=== PATIENT | female | born 1995 | race Caucasian/White ===

== ENCOUNTER 2017-12-07 09:07 | Emergency (ER) | END 2017-12-07 09:34 | disposition home or self-care (01) ==

== ENCOUNTER 2018-07-21 22:51 | Emergency (ER) | payer OTHER ==
[~2018-07-21] VITALS: Wt 70.0 kg
[~2018-07-21 22:51] MED LIST: CEPH-443 PO; HYDR-4011 PO; IBUP-1542 PO; METO10TA92 PO; OMEP20CA16 PO; PREN1TAB62 PO
[2018-07-21 23:14] VITALS: BP 135/60; RESP 20
[2018-07-22] MEDS ORDERED: NITR-58 PO (01:28)
--- NOTE | 2018-07-22 01:36 | ERD ---
ER Documentation Chief Complaint Chief Complaint HEMATURIA, BACK PAIN X'S 1 DAY HPI 23-year-old female was complaining of hematuria since 3 PM this afternoon. Patient states the she had dysuria, urinary frequency and urgency since earlier in the morning, and hematuria presented later in the afternoon. She also rep orts bilateral lower back pain. LMP was 07/11/2018. Patient reports 2 sexual partners in the last 12-month. Denies fever or chills. Denies vaginal discharge. ROS All systems reviewed and are negative except as per history of present illness. Medications Home Meds Active Scripts Nitrofurantoin Monohyd Macrocr* (Macrobid*) 100 Mg Capsr, 100 MG PO BID for 7 Days, CAP Prov:DANYELL GRACE HIGHER EDUCATION ADMINISTRATOR 07/22/18 Ibuprofen* (Motrin*) 600 Mg Tab, 600 MG PO Q6, #30 TAB Prov:LUCIANO BENTLEY PA-C 12/07/17 Cephalexin* (Keflex*) 500 Mg Capsule, 500 MG PO TID, #15 CAP Prov:HEAVENLY TRAORE MD 05/14/16 Metoclopramide* (Reglan*) 10 Mg Tablet, 10 MG PO Q6H PRN for NAUSEA AND OR VOMITING, #30 TAB Prov:HEAVENLY TRAORE MD 05/14/16 Hydrocodone/Acetaminophen ([place] 5-325 Tablet) 1 Each Tablet, 1 EACH PO Q4 PRN for SEVERE PAIN LEVEL 7-10, #30 TAB Prov:HEAVENLY TRAORE MD 05/14/16 Omeprazole* (Omeprazole*) 20 Mg Capsule.dr, 20 MG PO DAILY, #30 CAP Prov:HEAVENLY TRAORE MD 05/14/16 Hydrocodone/Acetaminophen ([place] 5-325 Tablet) 1 Each Tablet, 1 TAB PO Q6H PRN for PAIN, #7 TAB Prov:Jazz Richard PA-C 05/07/16 Reported Medications Vit-Iron Fumarate-FA ( Vitamin Tablet) 1 Each Tablet, 1 TAB PO DAILY, TAB 02/25/16 Allergies Allergies: Coded Allergies: No Known Allergy (Unverified , 12/07/17) PMhx/Soc History of Surgery: Yes ( FEB 25, 2016) Anesthesia Reaction: No Hx Neurological Disorder: No Hx Respiratory Disorders: No Hx Cardiac Disorders: No Hx Psychiatric Problems: No Hx Miscellaneous Medical Probl: No Hx Alcohol Use: No Hx Substance Use: No Hx Tobacco Use: No Physical Exam Vitals Vital Signs Date Temp Pulse Resp B/P (MAP) Pulse Ox O2 O2 Flow FiO2 Time Delivery Rate 07/21/18 98.1 73 20 135/60 99 23:14 (85) Physical Exam General: Well-developed, well-nourished, conscious and coherent, in no distress Skin: Warm and dry without rash, good texture and turgor Head: Normocephalic without evidence of trauma Chest: Normal AP diameter. Good expansion without retractions. Nontender. Lungs are clear to auscultate bilaterally with good tidal volume Heart: Regular rate and rhythm. No murmur, rub, or gallops heard Abdomen: Soft and nontender without masses, guarding, or rebound. Bowel sounds are active. No hepatosplenomegaly Back: Without spinal or CVA tenderness Extremities: Full range of motion. Good strength bilaterally. No erythema, ecchymosis, or edema. Peripheral pulses are intact. Sensation intact Neuro: Alert and oriented 4, GCS 15. Results 24 hrs Laboratory Tests Test 07/22/18 01:17 07/22/18 01:19 Bedside Urine pH (LAB) 7.0 Bedside Urine Protein (LAB) Trace Bedside Urine Glucose (UA) Negative Bedside Urine Ketones (LAB) Negative Bedside Urine Blood 3+ Bedside Urine Nitrite (LAB) Positive Bedside Urine Leukocyte Esterase (L 3+ POC Beta HCG, Qualitative NEGATIVE Procedures/MDM 23-year-old female present ED with hematuria, dysuria, urinary frequency and urgency. Her symptoms are indicative of urinary tract infection. UA confirms urinary tract infection. She has 3+ leukocyte, positive nitrite, 3+ blood. Patient is afebrile, no CVA tenderness, I doubt pyelonephritis. Low suspicion for urolithiasis. Patient appears well, stable for discharge and outpatient management. Medical decision making shared with patient and family. Education provided to patient and family. Patient and family expressed understanding of the plan. Medications on discharge: Macrobid. Follow-up: Primary care provider in 2-3 days or return to ED if worse. Disclaimer: Inadvertent spelling and grammatical errors are likely due to EHR/dictation software use and do not reflect on the overall quality of patient care. Also, please note that the electronic time recorded on this note does not necessarily reflect the actual time of the patient encounter. Departure Diagnosis: Primary Impression: UTI (urinary tract infection) Urinary tract infection type: acute cystitis Hematuria presence: with hematuria Qualified Codes: N30.01 - Acute cystitis with hematuria Condition: Stable Patient Instructions: Understanding Urinary Tract Infections (UTIs) Referrals: [facility] YOU HAVE RECEIVED A MEDICAL SCREENING EXAM AND THE RESULTS INDICATE THAT YOU DO NOT HAVE A CONDITION THAT REQUIRES URGENT TREATMENT IN THE EMERGENCY DEPARTMENT. FURTHER EVALUATION AND TREATMENT OF YOUR CONDITION CAN WAIT UNTIL YOU ARE SEEN IN YOUR DOCTORS OFFICE WITHIN THE NEXT 1-2 DAYS. IT IS YOUR RESPONSIBILITY TO MAKE AN APPOINTMENT FOR FOLOW-UP CARE. IF YOU HAVE A PRIMARY DOCTOR --you should call your primary doctor and schedule an appointment IF YOU DO NOT HAVE A PRIMARY DOCTOR YOU CAN CALL OUR PHYSICIAN REFERRAL HOTLINE AT IF YOU CAN NOT AFFORD TO SEE A PHYSICIAN YOU CAN CHOSE FROM THE FOLLOWING [facility] CLINICS [facility] [address] [facility]. [facility] [address] [facility] [facility] [address] [facility] [facility] [address] [facility]. [facility] [address] [facility]. [facility]. [address] Additional Instructions: Call your primary care doctor TOMORROW for an appointment during the next 2-3 days.See the doctor sooner or return here if your condition worsens before your appointment time. DANYELL GRACE NP Jul 22, 2018 01:36
[2018-07-22 01:38] VITALS: PULSE 66
[2018-07-22] MEDS ORDERED: NITROFURANTOIN (SR) 100 MG CAP PO ONE (02:00)
== END 2018-07-22 01:40 | disposition home or self-care (01) ==
LOC: FTE 22:51
DX: N30.01 Acute cystitis with hematuria (principal); R40.2412 Glasgow coma scale score 13-15, at arrival to emergency department
CPT/HCPCS: 81003; 81025; 87591; Z7502; Z7610; 99283